=== PATIENT | female | born 1995 | race Hispanic/Latino ===

== ENCOUNTER → 2022-03-17 | Outpatient (CLI) | payer MEDICAID ==
[~2022-03-17] MED LIST: LIDOCAINE HCL 1% 20 ML VIAL ONE; LIDOCAINE HCL 4% LTA SOL 4 ML VIAL ONE
== END | disposition home or self-care (01) ==
LOC: WHH 10:27
PROVIDERS: ATTEND Family Medicine
DX: L98.0 Pyogenic granuloma (principal); D23.9 Other benign neoplasm of skin, unspecified; S61.206A Unspecified open wound of right little finger without damage to nail, initial encounter; E66.9 Obesity, unspecified; Z68.43 Body mass index [BMI] 50.0-59.9, adult; Z90.49 Acquired absence of other specified parts of digestive tract; X58.XXXA Exposure to other specified factors, initial encounter; Y93.89 Activity, other specified; Y92.89 Other specified places as the place of occurrence of the external cause; Y99.8 Other external cause status
CPT/HCPCS: 11106; 88305; 99205; A4450

== ENCOUNTER → 2022-03-24 | Outpatient (CLI) | payer MEDICAID | END | disposition home or self-care (01) | LOC: WHH 10:15 | PROVIDERS: ATTEND Family Medicine | DX: L98.0 Pyogenic granuloma (principal); D23.9 Other benign neoplasm of skin, unspecified; S61.206D Unspecified open wound of right little finger without damage to nail, subsequent encounter; E66.9 Obesity, unspecified; Z68.43 Body mass index [BMI] 50.0-59.9, adult; Z90.49 Acquired absence of other specified parts of digestive tract; X58.XXXD Exposure to other specified factors, subsequent encounter | CPT/HCPCS: 17250; A6209 ==